=== PATIENT | male | born 1975 | race African-American/Black ===

== ENCOUNTER 2019-12-07 11:18 | Emergency (ER) | payer OTHER ==
[~2019-12-07] VITALS: Ht 190.5 cm; Wt 179.2 kg
[2019-12-07 11:32] VITALS: Ht 190.5 cm; Wt 179.2 kg
[2019-12-07 12:19] LABS: BASOPHIL % 0.3 % (0-2); PLATELET COUNT 218 x10^3mcL (130-400)
[2019-12-07 12:26] LABS: CARBON DIOXIDE 27.1 mmol/L (21-32); CHLORIDE SERUM 107 mmol/L (98-107); CREATININE SERUM 1.3 mg/dL (0.7-1.3); GFR1 > 60 mL/min; GLUCOSE SERUM 79 mg/dL (74-106); POTASSIUM SERUM 4.7 mmol/L (3.5-5.1); SODIUM SERUM 141 mmol/L (136-145)
[2019-12-07 12:30] LABS: ALBUMIN 3.6 g/dL (3.4-5.0); ALKALINE PHOSPHATASE 90 U/L (46-116); ALT/SGPT 34 U/L (16-63); AST/SGOT 40 U/L (15-37); BILIRUBIN TOTAL 0.4 mg/dL (0.20-1.00)
[2019-12-07 12:32] LABS: TOTAL PROTEIN, SERUM 8.4 g/dL (6.4-8.2)
[2019-12-07 12:41] LABS: RED CELL DISTRIBUTION WIDTH 17.2 % (11.5-14.5)
[2019-12-07 15:21] VITALS: BP 134/62
== END 2019-12-07 15:21 | disposition other institution (70) ==
LOC: ED 11:18
PROVIDERS: Student in an Organized Health Care Education/Training Program
DX: R07.89 Other chest pain (principal); R06.02 Shortness of breath; R42 Dizziness and giddiness; J44.9 Chronic obstructive pulmonary disease, unspecified; I10 Essential (primary) hypertension; E11.9 Type 2 diabetes mellitus without complications; E66.9 Obesity, unspecified; E78.5 Hyperlipidemia, unspecified; F12.10 Cannabis abuse, uncomplicated; G89.29 Other chronic pain; Z86.73 Personal history of transient ischemic attack (TIA), and cerebral infarction without residual deficits
CPT/HCPCS: 82962; 83880; Q0092; U0003-CS